=== PATIENT | male | born 1985 | race Caucasian/White ===

== ENCOUNTER → 2017-06-21 15:39 | Emergency (ER) | payer OTHER | END | disposition left against medical advice (07) | LOC: D.ER 15:39 | DX: Z02.9 Encounter for administrative examinations, unspecified (principal) ==

== ENCOUNTER 2017-09-14 20:43 | Emergency (ER) | payer OTHER | END 2017-09-14 22:11 | disposition home or self-care (01) | LOC: D.ER 20:43 | DX: M54.5 Low back pain (principal); S39.012A Strain of muscle, fascia and tendon of lower back, initial encounter; X58.XXXA Exposure to other specified factors, initial encounter; Y93.89 Activity, other specified; Y92.029 Unspecified place in mobile home as the place of occurrence of the external cause; M62.838 Other muscle spasm; F17.200 Nicotine dependence, unspecified, uncomplicated ==